=== PATIENT | male | born 1975 | race Caucasian/White ===

== ENCOUNTER 2018-07-11 17:13 | Emergency (ER) | payer BC, OTHER ==
[2018-07-11 18:16] VITALS: BP 104/56
[2018-07-11] MEDS ORDERED: Ipratropium 0.5MG/2.5ML NEB* 0.5 MG/2.5 ML NEB.SOLN INH ONE (19:13)
[2018-07-11] MEDS ORDERED: Albuterol 2.5 MG/3 ML NEB.SOL* (0.083%) INH ONE (19:13)
--- NOTE | 2018-07-11 19:13 | UC ---
Respiratory Complaint HPI - HPI Summary HPI Summary: The patient is a 42-year-old male that presents with a 5 day history of fatigue cough fever and wheezing. He states he has never had a diagnosis of asthma bronchitis or pneumonia. His cough is productive at times. His chest feels tight. He denies any history of chest pain or or shortness of breath. He denies any nausea vomiting or diarrhea. Denies any sinus pressure or pain or postnasal drip. 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 States that the day before the onset of his symptoms a coworker opened a door where they were working on a large exhaust unit on the roof of a building. In the building a lot of experiments are done with animals and substances are sucked up in hoods and vented to this area where he was working. - History of Current Complaint Chief Complaint: UCGeneralIllness Stated Complaint: FEVER, COUGH Time Seen by Provider: 07/11/18 18:06 Hx Obtained From: Patient Onset/Duration: Gradual Onset, Lasting Days - 5 Severity Initially: Mild Severity Currently: Moderate Pain Intensity: 0 Pain Scale Used: 0-10 Numeric Character: Cough: Productive Aggravating Factors: Exertion, Deep Breaths Alleviating Factors: Other Associated Signs And Symptoms: Positive: Fever, Chills, Wheezing - Allergies/Home Medications Allergies/Adverse Reactions: Allergies Allergy/AdvReac Type Severity Reaction Status Date / Time No Known Allergies Allergy Verified 07/11/18 18:06 Home Medications: Home Medications Guaifenesin/Dextromethorphan [Mucinex Dm ER 600-30 mg Tablet] 1 each PO BID PRN 07/11/18 [History Confirmed 07/11/18] Ibuprofen TAB* [Advil TAB*] 400 mg PO Q6H PRN 07/11/18 [History Confirmed ] PMH/Surg Hx/FS Hx/Imm Hx Previously Healthy: Yes - Surgical History Surgical History: Yes Surgery Procedure, Year, and Place: [facility]. left knee - meniscus - Family History Known Family History: Positive: Hypertension Family History: NON CONTRIBUTORY - Social History Alcohol Use: Occasionally Alcohol Amount: 10 DRINKS/WEEK Substance Use Type: None Smoking Status (MU): Former Smoker Type: Cigarettes Amount Used/How Often: 2PPWEEK, 15 YRS Have You Smoked in the Last Year: No When Did the Patient Quit Smoking/Using Tobacco: 2010 Review of Systems Constitutional: Fever, Chills, Fatigue Skin: Negative Eyes: Negative ENT: Negative Respiratory: Cough, Other - wheezing Cardiovascular: Negative Gastrointestinal: Negative Genitourinary: Negative Motor: Negative Neurovascular: Negative Musculoskeletal: Negative Neurological: Negative Psychological: Negative All Other Systems Reviewed And Are Negative: Yes Physical Exam Triage Information Reviewed: Yes Appearance: Well-Appearing, No Pain Distress, Well-Nourished Vital Signs: Initial Vital Signs Temp 99.1 F 07/11/18 18:10 Pulse 94 07/11/18 18:10 Resp 20 07/11/18 18:10 BP 104/56 07/11/18 18:10 Pulse Ox 95 07/11/18 18:10 Vital Signs Reviewed: Yes Eyes: Positive: Conjunctiva Clear ENT: Positive: Hearing grossly normal, Pharynx normal, Uvula midline. Negative : Pharyngeal erythema, Nasal congestion, Nasal drainage, Tonsillar swelling, Tonsillar exudate, Trismus, Muffled voice, Hoarse voice, Dental tenderness, Sinus tenderness Neck: Positive: Supple, Nontender, No Lymphadenopathy Respiratory: Positive: No respiratory distress, No accessory muscle use, Crackles - LLL, Wheezing Cardiovascular: Positive: RRR, No Murmur Musculoskeletal: Positive: ROM Intact, No Edema Neurological: Positive: Alert Psychological Exam: Normal Skin Exam: Normal UC Diagnostic Evaluation - Laboratory O2 Sat by Pulse Oximetry: 95 - low normal - Radiology Radiology Interpretation Completed By: ED Physician Summary of Radiographic Findings: reticulonodular infiltrate LLL Re-Evaluation - Re-Evaluation First Eval Re-Evaluation Time: 20:07 Change: Improved Comment: still some wheezing Respiratory Course/Dx - Differential Dx/Diagnosis Provider Diagnoses: pneumonia Discharge - Sign-Out/Discharge Documenting (check all that apply): Patient Departure All imaging exams completed and their final reports reviewed: No - Discharge Plan Condition: Stable Disposition: HOME Prescriptions: Amoxicillin/Clavulanate TAB* [Augmentin TAB 875*] 875 mg PO BID #14 tab Azithromycin TAB* [Zithromax TAB*] 250 mg PO DAILY #4 tab Patient Education Materials: Pneumonia (ED), Bronchospasm (ED) Referrals: Aldo LEONARDO,Solomon Lara [Medical Doctor] - 2 Days Additional Instructions: The official XR reading is pending You can call here tomorrow mid morning for the official results [id number] Blood work is pending Use albuterol inhaler as directed Because of the appearance of you pneumonia and the circumstances that occurred right before you got ill I am referring you to an infectious disease doctor - Billing Disposition and Condition Condition: STABLE Disposition: Home
[2018-07-11] MEDS ORDERED: Albuterol HFA INHALER* 8 gm MDI INH ONE (20:00)
[2018-07-11] MEDS ORDERED: Amoxicillin/Clavulanate TAB* 875 MG PO ONE (20:12)
[2018-07-11] MEDS ORDERED: Azithromycin TAB* 250 MG PO ONE (20:12)
[2018-07-12 10:44] LABS: Hematocrit 41 % (42-52); Hemoglobin 14.4 g/dl (14.0-18.0); Mean Corpuscular HGB Conc 35 g/dl (31-36); Mean Corpuscular Hemoglobin 32 pg (27-31); Mean Corpuscular Volume 89 fL (80-94); Mean Platelet Volume 9.6 fL (7.4-10.4); Platelet Count 154 10^3/ul (150-450); Red Blood Count 4.54 10^6/ul (4.00-5.40); Red Cell Distribution Width 12 % (10.5-15); White Blood Count 5.1 10^3/ul (3.5-10.8)
[2018-07-12 11:27] LABS: ABS Basophils 0 10^3/ul (0-0.2); ABS Eosinophils 0.1 10^3/ul (0-0.6); ABS Monocytes 0.9 10^3/ul (0-0.8); ABS Neutrophils 3.1 10^3/ul (1.5-7.7)
[2018-07-12 11:30] LABS: ABS Basophils 0.1 10^3/ul (0-0.2); ABS Neutrophils 2.8 10^3/ul (1.5-7.7); Monocytes % 18 % (0-7)
--- NOTE | 2018-07-15 07:08 | UC ---
- Progress Note Progress Note: + m. pneumoniae IgG neg m. pneumoniae IgM neg legionella Pt on z pack, augmentin no change ljj 07/15/2018 Re-Evaluation - Re-Evaluation First Eval Re-Evaluation Time: 20:07 Change: Improved Comment: still some wheezing Discharge - Sign-Out/Discharge Documenting (check all that apply): Post-Discharge Follow Up All imaging exams completed and their final reports reviewed: No - Discharge Plan Condition: Stable Disposition: HOME Prescriptions: Amoxicillin/Clavulanate TAB* [Augmentin TAB 875*] 875 mg PO BID #14 tab Azithromycin TAB* [Zithromax TAB*] 250 mg PO DAILY #4 tab Patient Education Materials: Bronchospasm (ED), Pneumonia (ED) Forms: *Work Release Referrals: Aldo LEONARDO,Solomon Lara [Medical Doctor] - 2 Days Additional Instructions: The official XR reading is pending You can call here tomorrow mid morning for the official results [id number] Blood work is pending Use albuterol inhaler as directed Because of the appearance of you pneumonia and the circumstances that occurred right before you got ill I am referring you to an infectious disease doctor - Billing Disposition and Condition Condition: STABLE Disposition: Home
== END 2018-07-11 20:28 | disposition home or self-care (01) ==
LOC: UCCORT 17:13
DX: J18.9 Pneumonia, unspecified organism (principal); Z87.891 Personal history of nicotine dependence
CPT/HCPCS: 36415; 71046; 85025; 85060; 86713; 86738; 99213; A9270-GY; G0463